=== PATIENT | female | born 1970 | race Caucasian/White ===

== ENCOUNTER 2018-05-03 15:58 | Inpatient (IN) | payer SELFPAY ==
[~2018-05-03] VITALS: Ht 175.3 cm; Wt 111.0 kg
[2018-05-03] MEDS ORDERED: SODIUM CHLORIDE FLUSH 10ML SYR IVF ONE (16:30)
--- NOTE | 2018-05-03 16:31 | NUR ---
PT W/ C/O EPIGASTRIC ABD PAIN SINCE TUESDAY, +N/V ANYTIME SHE EATS. DENIES DIARRHEA. RPTS A 10LB WEIGHT LOSS SINCE TUESDAY. DR. GODINEZ AT BEDSIDE. PT ASSESSMENT REV. AND ORDERS REC'D. PT DENIES PAIN MEDICATION AT THIS TIME. CALL LIGHT W/I REACH. US TECH AT BEDSIDE.
[2018-05-03 16:40] LABS: BASOPHILS # (AUTO) 0.02 x10^3/uL (0-0.1); BASOPHILS % (AUTO) 0 % (0-1); EOSINOPHILS # (AUTO) 0.07 x10^3/uL (0-0.4); EOSINOPHILS % (AUTO) 1 % (1-7); LYMPHOCYTES # (AUTO) 1.74 x10^3/uL (1-3.4); LYMPHOCYTES % (AUTO) 22 % (22-44); MD NO; MEAN CORPUSCULAR HEMOGLOBIN 30.7 pg (27.0-34.8); MEAN CORPUSCULAR HGB CONC 34.4 g/dL (32.4-35.8); MEAN CORPUSCULAR VOLUME 89.3 fL (80-100); MEAN PLATELET VOLUME 10.3 fL (7.4-10.4); MONOCYTES # (AUTO) 0.76 x10^3/uL (0.2-0.8); MONOCYTES % (AUTO) 10 % (2-9); NEUTROPHILS # (AUTO) 5.38 x10^3/uL (1.8-6.8); NEUTROPHILS % (AUTO) 68 % (42-75); PLATELET COUNT 254 x10^3/uL (130-400); RED BLOOD COUNT 4.98 x10^6/uL (3.82-5.3)
[2018-05-03 16:48] LABS: ALBUMIN 3.6 g/dL (3.4-5.0); CALCIUM 9.8 mg/dL (8.5-10.1); CHLORIDE 103 mmol/L (98-107)
--- NOTE | 2018-05-03 16:50 | NUR ---
PT RESTING IN BED, US AT BEDSIDE, PT CONT TO REPORT PAIN IN CONTROLLED AT THIS TIME
[2018-05-03 16:51] LABS: ALANINE AMINOTRANSFERASE 467 U/L (12-78); ALKALINE PHOSPHATASE 338 U/L (45-117); BILIRUBIN,TOTAL 6.2 mg/dL (0.2-1.0); CREATININE 0.74 mg/dL (0.55-1.02); TOTAL PROTEIN 8.3 g/dL (6.4-8.2)
[2018-05-03 16:54] LABS: ANION GAP 9 mmol/L (5-15)
[2018-05-03 16:55] LABS: CULTURE INDICATED? YES; MICROSCOPIC INDICATED
[2018-05-03] MEDS ORDERED: CEFTRIAXONE PMX 1GM/50ML 50 ML IV ONE (18:00)
[2018-05-03] MEDS ORDERED: POTASSIUM CHLORIDE 40 MEQ in SODIUM CHLORIDE 0.9% 500 ML IV ONE (18:00)
[2018-05-03] MEDS ORDERED: POTASSIUM CHLORIDE 20 MEQ TAB.ER.PRT PO ONE (18:00)
[2018-05-03] MEDS ORDERED: CEFTRIAXONE PMX 1GM/50ML 50 ML ONE (18:31)
[2018-05-03] MEDS ORDERED: POTASSIUM CHLORIDE 20 MEQ TAB.ER.PRT ONE (18:31)
[2018-05-03 19:07] VITALS: BP 130/84
[2018-05-03] MEDS ORDERED: BISACODYL 10 MG SUPP PR PRN (20:00)
[2018-05-03] MEDS ORDERED: NS + 20MEQ KCL 1,000 ML IV SCH (20:06)
[2018-05-03] MEDS ORDERED: ESTR1TAB15 PO (20:53)
[2018-05-03] MEDS ORDERED: PARO20TA98 PO (20:53)
[2018-05-03] MEDS ORDERED: HYDR25TA6 PO (20:53)
[2018-05-03] MEDS ORDERED: LEVO100T PO (20:53)
[2018-05-03] MEDS: morphine SULFATE 10 MG/ML, 1ML IVPush PRN (22:08)
[2018-05-03] MEDS: ONDANSETRON 2MG/ML, 2ML IVPush PRN (22:09)
[2018-05-03] MEDS ORDERED: MAGNESIUM SULFATE PMX 2GM/50ML 50 ML IV ONE (23:00)
[2018-05-04] MEDS: NS + 40MEQ KCL 1,000 ML IV SCH ×2 (01:00→11:03)
[2018-05-04 01:26] VITALS: BP 124/78
[2018-05-04 05:30] LABS: BASOPHILS # (AUTO) 0.04 x10^3/uL (0-0.1); BASOPHILS % (AUTO) 1 % (0-1); EOSINOPHILS # (AUTO) 0.17 x10^3/uL (0-0.4); EOSINOPHILS % (AUTO) 3 % (1-7); LYMPHOCYTES # (AUTO) 1.78 x10^3/uL (1-3.4); LYMPHOCYTES % (AUTO) 26 % (22-44); MD NO; MEAN CORPUSCULAR HEMOGLOBIN 30.6 pg (27.0-34.8); MEAN CORPUSCULAR HGB CONC 33.6 g/dL (32.4-35.8); MEAN CORPUSCULAR VOLUME 91.2 fL (80-100); MEAN PLATELET VOLUME 10.5 fL (7.4-10.4); MONOCYTES # (AUTO) 0.87 x10^3/uL (0.2-0.8); MONOCYTES % (AUTO) 13 % (2-9); NEUTROPHILS % (AUTO) 58 % (42-75); PLATELET COUNT 195 x10^3/uL (130-400); RED BLOOD COUNT 4.49 x10^6/uL (3.82-5.3)
[2018-05-04 05:32] LABS: ANION GAP 7 mmol/L (5-15); CALCIUM 8.7 mg/dL (8.5-10.1); CHLORIDE 108 mmol/L (98-107)
[2018-05-04 05:37] LABS: ALANINE AMINOTRANSFERASE 355 U/L (12-78); ALKALINE PHOSPHATASE 266 U/L (45-117); BILIRUBIN,TOTAL 4.4 mg/dL (0.2-1.0); CREATININE 0.59 mg/dL (0.55-1.02); TOTAL PROTEIN 6.9 g/dL (6.4-8.2)
[2018-05-04 07:21] VITALS: BP 128/77
[2018-05-04] MEDS ORDERED: LEVOTHYROXINE 100 MCG INJ IVPush SCH (09:00)
[2018-05-04] MEDS: ONDANSETRON 2MG/ML, 2ML IVPush PRN (09:24)
[2018-05-04 12:25] VITALS: BP 110/68
[2018-05-04 13:58] LABS: AMPHETAMINE SCREEN, URINE Negative (Negative); BARBITURATE SCREEN, URINE Negative (Negative); BENZODIAZEPINE SCREEN, URINE Negative (Negative); CANNABINOID SCREEN, URINE Positive (Negative); COCAINE SCREEN, URINE Negative (Negative); METHADONE SCREEN, URINE Negative (Negative); OPIATE SCREEN, URINE Positive (Negative)
[2018-05-04] MEDS ORDERED: FENTANYL PF 100 MCG/2ML ONE ×3 (14:49→16:00)
[2018-05-04] MEDS ORDERED: ONDANSETRON 2MG/ML, 2ML ONE (15:15)
[2018-05-04] MEDS ORDERED: DEXAMETHASONE 4 MG/ML, 1ML ONE (15:15)
[2018-05-04] MEDS ORDERED: SUCCINYLCHOLINE 20 MG/ML, 10ML ONE (15:15)
[2018-05-04] MEDS ORDERED: ROCURONIUM 10 MG/ML,10ML ONE (15:15)
[2018-05-04] MEDS ORDERED: PROPOFOL 10 MG/ML, 20ML ONE (15:15)
[2018-05-04] MEDS ORDERED: PROCHLORPERAZINE 5 MG/ML, 2ML IV PRN (15:30)
[2018-05-04] MEDS ORDERED: METOPROLOL 1 MG/ML, 5ML IV PRN (15:30)
[2018-05-04] MEDS ORDERED: PROMETHAZINE 25 MG/ML, 1ML IV PRN (15:30)
[2018-05-04] MEDS ORDERED: hydrALAzine 20 MG/ML, 1ML IV PRN (15:30)
[2018-05-04] MEDS ORDERED: HYDROmorphone 2 MG/ML, 1ML IVPush PRN (15:30)
[2018-05-04] MEDS ORDERED: LABETALOL 5MG/ML, 20ML IV PRN (15:30)
[2018-05-04] MEDS ORDERED: HALOPERIDOL 5 MG/ML IV PRN (15:30)
[2018-05-04] MEDS ORDERED: MEPERIDINE/PF 25MG/0.5ML IVPush PRN (15:30)
[2018-05-04] MEDS ORDERED: DIPHENHYDRAMINE 50 MG/ML, 1ML IVPush PRN (15:30)
[2018-05-04] MEDS: FENTANYL PF 100 MCG/2ML IV PRN ×2 (16:00→16:10)
[2018-05-04] MEDS ORDERED: OMNIPAQUE 350 MG/ML, 50 ML BOTTLE ONE (16:05)
[2018-05-04 19:15] VITALS: BP 122/76
[2018-05-04] MEDS: CEFTRIAXONE PMX 1GM/50ML 50 ML IV SCH (21:02)
[2018-05-05] MEDS: NS + 40MEQ KCL 1,000 ML IV SCH ×3 (00:09→23:23)
[2018-05-05 00:14] VITALS: BP 115/62
[2018-05-05] MEDS ORDERED: BUPIVACAINE/PF-EPI 0.5% 1:200K ONE (04:48)
[2018-05-05 04:54] VITALS: BP 134/69
[2018-05-05] MEDS ORDERED: FENTANYL PF 100 MCG/2ML ONE ×3 (05:06→06:38)
[2018-05-05] MEDS ORDERED: MIDAZOLAM 1 MG/ML, 2ML ONE (05:06)
[2018-05-05] MEDS ORDERED: DEXAMETHASONE 4 MG/ML, 1ML ONE (05:29)
[2018-05-05] MEDS ORDERED: GLYCOPYRROLATE 0.2MG/1ML, 5ML ONE (05:29)
[2018-05-05] MEDS ORDERED: CEFAZOLIN 1,000 MG ONE (05:29)
[2018-05-05] MEDS ORDERED: ESMOLOL 100 MG/10 ML ONE (05:29)
[2018-05-05] MEDS ORDERED: SUCCINYLCHOLINE 20 MG/ML, 10ML ONE (05:29)
[2018-05-05] MEDS ORDERED: ONDANSETRON 2MG/ML, 2ML ONE (05:29)
[2018-05-05] MEDS ORDERED: NEOSTIGMINE 1 MG/ML, 10ML ONE (05:29)
[2018-05-05] MEDS ORDERED: PROPOFOL 10 MG/ML, 20ML ONE (05:29)
[2018-05-05] MEDS ORDERED: OXYcodone 5 MG/5 ML ORAL.SOL UDC PO PRN (06:00)
[2018-05-05] MEDS ORDERED: KETOROLAC 30 MG/1 ML IV PRN (06:00)
[2018-05-05] MEDS ORDERED: LORazepam 2 MG/ML, 1ML IVPush PRN (06:00)
[2018-05-05] MEDS ORDERED: METOPROLOL 1 MG/ML, 5ML IV PRN (06:00)
[2018-05-05] MEDS ORDERED: METOCLOPRAMIDE 5 MG/ML, 2ML IV PRN (06:00)
[2018-05-05] MEDS ORDERED: MEPERIDINE/PF 25MG/0.5ML IVPush PRN (06:00)
[2018-05-05] MEDS ORDERED: ACETAMINOPHEN 325 MG TABLET PO PRN (06:00)
[2018-05-05] MEDS ORDERED: MEPERIDINE/PF 25MG/ML,1ML ONE (06:38)
[2018-05-05] MEDS ORDERED: KETOROLAC 30 MG/1 ML ONE (06:38)
[2018-05-05] MEDS: FENTANYL PF 100 MCG/2ML IV PRN ×3 (06:43→06:58)
[2018-05-05] MEDS ORDERED: OXYcodone 5 MG/5 ML ORAL.SOL UDC ONE (06:55)
[2018-05-05] MEDS ORDERED: HYDROmorphone 1 MG/ML, 1ML ONE (06:55)
[2018-05-05] MEDS ORDERED: ACETAMINOPHEN 650 MG/20.3 ML UDC ONE (06:55)
[2018-05-05] MEDS: HYDROmorphone 2 MG/ML, 1ML IVPush PRN ×2 (07:09→07:20)
[2018-05-05 07:55] VITALS: BP 144/74
[2018-05-05] MEDS: LEVOTHYROXINE 100 MCG TABLET PO SCH (09:00)
[2018-05-05 09:01] LABS: MEAN CORPUSCULAR HEMOGLOBIN 30.3 pg (27.0-34.8); MEAN CORPUSCULAR HGB CONC 33.3 g/dL (32.4-35.8); MEAN CORPUSCULAR VOLUME 91.1 fL (80-100); MEAN PLATELET VOLUME 10.6 fL (7.4-10.4); PLATELET COUNT 198 x10^3/uL (130-400); RED BLOOD COUNT 4.23 x10^6/uL (3.82-5.3)
[2018-05-05 09:05] LABS: ALANINE AMINOTRANSFERASE 301 U/L (12-78); ALBUMIN 2.8 g/dL (3.4-5.0); ANION GAP 7 mmol/L (5-15); CALCIUM 8.1 mg/dL (8.5-10.1); CHLORIDE 112 mmol/L (98-107)
[2018-05-05 09:07] LABS: ALKALINE PHOSPHATASE 236 U/L (45-117); BILIRUBIN,TOTAL 1.7 mg/dL (0.2-1.0); CREATININE 0.61 mg/dL (0.55-1.02); TOTAL PROTEIN 6.4 g/dL (6.4-8.2)
[2018-05-05 10:48] LABS: BASOPHILS % (AUTO) 0 % (0-1); EOSINOPHILS # (AUTO) 0.01 x10^3/uL (0-0.4); EOSINOPHILS % (AUTO) 0 % (1-7); LYMPHOCYTES # (AUTO) 0.56 x10^3/uL (1-3.4); LYMPHOCYTES % (AUTO) 5 % (22-44); MD SCAN; MONOCYTES # (AUTO) 0.26 x10^3/uL (0.2-0.8); MONOCYTES % (AUTO) 2 % (2-9); NEUTROPHILS # (AUTO) 9.94 x10^3/uL (1.8-6.8); NEUTROPHILS % (AUTO) 92 % (42-75)
[2018-05-05 11:06] VITALS: BP 107/70
[2018-05-05] MEDS ORDERED: CALCIUM CARBONATE 500 MG TAB.CHEW PO PRN (11:30)
[2018-05-05] MEDS: IBUPROFEN 200 MG TABLET PO PRN ×3 (11:40→21:07)
[2018-05-05 14:10] VITALS: BP 120/72
[2018-05-05] MEDS: morphine SULFATE 10 MG/ML, 1ML IVPush PRN ×3 (14:20→23:23)
[2018-05-05] MEDS: CEFTRIAXONE PMX 1GM/50ML 50 ML IV SCH (21:00)
[2018-05-05 21:17] VITALS: BP 108/55
[2018-05-06 01:50] VITALS: BP 93/53
[2018-05-06] MEDS: LEVOTHYROXINE 100 MCG TABLET PO SCH (06:36)
[2018-05-06] MEDS: NS + 40MEQ KCL 1,000 ML IV SCH (06:36)
[2018-05-06] MEDS: IBUPROFEN 200 MG TABLET PO PRN (06:37)
[2018-05-06 08:29] LABS: ALANINE AMINOTRANSFERASE 200 U/L (12-78); ALBUMIN 2.5 g/dL (3.4-5.0); ANION GAP 5 mmol/L (5-15); CALCIUM 8.1 mg/dL (8.5-10.1); CHLORIDE 114 mmol/L (98-107); CREATININE 0.62 mg/dL (0.55-1.02)
[2018-05-06 08:32] LABS: ALKALINE PHOSPHATASE 186 U/L (45-117); BILIRUBIN,TOTAL 1.3 mg/dL (0.2-1.0); TOTAL PROTEIN 5.7 g/dL (6.4-8.2)
[2018-05-06 10:29] VITALS: BP 121/76
[2018-05-06] MEDS ORDERED: ACET325C5 PO (15:08)
== END 2018-05-06 16:55 | disposition home or self-care (01) | DRG 418 ==
LOC: ED 17:45 → EDIP 17:46 → ED 18:23 → 4WST 18:48
PROVIDERS: ADMIT Family Medicine; ATTEND Family Medicine
PROC: 0FC98ZZ Extirpation of Matter from Common Bile Duct, Via Natural or Artificial Opening Endoscopic (ICD-10-PCS; 2018-05-04)
PROC: BF131ZZ Fluoroscopy of Gallbladder and Bile Ducts using Low Osmolar Contrast (ICD-10-PCS; 2018-05-04)
PROC: 0FT44ZZ Resection of Gallbladder, Percutaneous Endoscopic Approach (ICD-10-PCS; principal; 2018-05-05 05:30)
DX: K80.63 Calculus of gallbladder and bile duct with acute cholecystitis with obstruction (principal); N39.0 Urinary tract infection, site not specified; E03.9 Hypothyroidism, unspecified; E87.6 Hypokalemia; F32.9 Major depressive disorder, single episode, unspecified; I10 Essential (primary) hypertension; K21.9 Gastro-esophageal reflux disease without esophagitis; Z80.1 Family history of malignant neoplasm of trachea, bronchus and lung; Z90.49 Acquired absence of other specified parts of digestive tract; Z90.710 Acquired absence of both cervix and uterus; K31.89 Other diseases of stomach and duodenum; Z88.0 Allergy status to penicillin; R00.0 Tachycardia, unspecified
CPT/HCPCS: 36415; 74328; 99285; J3490; 74181; 76700; 80053; 80074; 80307; 81001; 83690; 83735; 85025; 87086; 88304; 93005; G0378; J0690; J0696; J1100; J1170; J1885; J2175; J2250; J2405; J2704; J2710; J3010; J3480; Q9967; C1769; J0330; J2270; J3475